=== PATIENT | female | born 1965 | race Caucasian/White ===

== ENCOUNTER 2017-07-20 08:30 | Emergency (ER) | payer OTHER ==
[~2017-07-20] VITALS: Wt 45.4 kg
[~2017-07-20 08:30] MED LIST: ADVAIR 250/501 EA INH; CHANTIX STARTER1 TAB PO; EFFEXOR XR150 M1 PO; NEURONTIN100 MG PO; NEURONTIN300 MG PO; PERCOCET 325 MG1 TA7 PO; PREDNICOT20 MG PO; PRILOSEC20 MG PO; PROAIR HFA8.5 GM INH; ROBAXIN500 MG PO; TOPAMAX50 MG PO; VOLTAREN50 M1 PO; ZOFRAN4 MG PO
[2017-07-20] MEDS ORDERED: VENTOLIN 02.5 MG/3 M INH (08:43)
[2017-07-20 09:18] LABS: BASO % 0.5 % (0.0-1.0); EOS % 0.2 % (1.0-4.0); HEMATOCRIT 42.1 % (37.0-47.0); HEMOGLOBIN 14.2 g/dl (12.0-16.0); LYMPH # 1.3 10*3/uL (1.3-4.4); LYMPH % 14.8 % (27.0-41.0); MEAN CELL VOLUME 89.6 fl (81.0-99.0); MEAN CORPUSCULAR HGB 30.2 pg (27.0-31.0); MEAN CORPUSCULAR HGB CONC 33.7 g/dl (33.0-37.0); MEAN PLATELET VOLUME 10.5 fl (9.6-12.3); MONO # 0.5 10*3/uL (0.1-1.0); MONO % 6.1 % (3.0-9.0); NEUT # 6.7 10*3/uL (2.3-7.9); NEUT % 78.1 % (47.0-73.0); PLATELET COUNT AUTOMATED 201 10*3/uL (130-400); RED CELL DISTRI WIDTH 12.2 % (0-14.5); WHITE BLOOD COUNT 8.6 10*3/uL (4.8-10.8)
[2017-07-20 09:33] LABS: ALBUMIN 3.7 gm/dl (3.1-4.5); ALKALINE PHOSPHATASE 70 U/L (45-117); BUN 8 mg/dl (7-24); CHLORIDE 107 mmol/L (98-107); CREATININE 0.78 mg/dL (0.55-1.02); POTASSIUM 3.7 mmol/L (3.5-5.1); SGOT/AST 11 IU/L (3-35); SGPT/ALT 15 U/L (12-78); SODIUM 143 mmol/L (136-145); TOTAL PROTEIN 7.4 gm/dL (6.4-8.2)
[2017-07-20 09:34] LABS: TROPONIN I < 0.015 ng/ml (<0.045)
[2017-07-20 10:12] LABS: ACT PARTIAL THROMBO TIME 22.6 SECONDS (20.8-31.5)
[2017-07-20] MEDS ORDERED: PREDNISONE50 MG PO (11:07)
[2017-07-20] MEDS ORDERED: ZITHROMAX250 MG PO (11:07)
== END 2017-07-20 11:58 | disposition home or self-care (01) ==
LOC: ED 08:30
PROVIDERS: Emergency Medicine; Family Medicine Adult Medicine
DX: J44.1 Chronic obstructive pulmonary disease with (acute) exacerbation (principal); F17.200 Nicotine dependence, unspecified, uncomplicated; Z90.710 Acquired absence of both cervix and uterus

== ENCOUNTER 2017-07-25 07:00 | Inpatient (IN) | payer OTHER ==
[2017-07-25] VITALS (7 sets, daily range): BP systolic 129–177; BP diastolic 77–91
[~2017-07-25] VITALS: Ht 160 cm; Wt 49.6 kg
--- NOTE | ~2017-07-25 | CON ---
[place], [place] REPORT OF CONSULTATION NAME: CARLO SOTOMAYOR UNIT #: [id number] ROOM: 504 DOCTOR: TYRELL HAWK MD BIRTHDATE: [birth year] DOS: 07/26/2017 REASON FOR CONSULTATION: Assess the patient for current insulation of bleach and other chemicals with ongoing acute respiratory symptoms. HISTORY OF PRESENT ILLNESS: A 52-year-old white female with a history of past, COPD. The patient has been noted with symptoms of coughing with increased shortness of breath occurred as the patient was spraying different chemicals at home including large amount of bleach. She has inhaled significant amount of these fumes at home and then after that she stated she developed symptoms of tightness in the chest with increased coughing, shortness of breath. The patient has been noted ill prior to that as well seen in the Emergency Room, given [id number] for this respiratory symptom. The patient has been hospitalized and currently started on bronchodilators and other medical management. The patient stated that she has been noted improvement in the respiratory symptoms in the last 24 hours with current combination of medications. The cough has been noted intermittently with some sputum expectoration, described to be yellowish-green at times. There were no symptoms of hemoptysis. REVIEW OF SYSTEMS: The remaining systems were reviewed with the patient is as follows: CONSTITUTIONAL: Fatigue, tiredness without fever or chills. EYES: Denies any burning, redness or discharge. EARS, NOSE, THROAT: No sore throat, hoarseness, otalgia, postnasal drainage or epistaxis. CARDIOVASCULAR: Denies anginal pain, edema or pain of the lower extremities. GASTROINTESTINAL: Denies dysphagia, nausea, vomiting, diarrhea, abdominal pain, hematemesis, melena, hematochezia. SKIN: Denies lesions or rashes. MUSCULOSKELETAL: Denies acute joint pain, redness, or tenderness. CENTRAL NERVOUS SYSTEM: Denies dizziness, headache, diplopia or syncopal episodes. Remaining systems were reviewed and they were noted all negative. PAST MEDICAL HISTORY: 1. History of ____. 2. Bursitis, left shoulder. 3. Cervical radiculopathy. 4. Previous chest wall contusion. 5. Degenerative arthritis. 6. Endometriosis. 7. Fibrocystic breast disease. 8. Gastroesophageal reflux. 9. History of diverticulosis. PAST SURGICAL HISTORY: 1. Breast biopsy. 2. Cataract extraction with lens implantation. 3. Hysterectomy with oophorectomy. [place], [place] REPORT OF CONSULTATION NAME: CARLO SOTOMAYOR UNIT #: [id number] ROOM: [facility] DOCTOR: TYRELL HAWK MD BIRTHDATE: [birth year] 4. Colonoscopy. 5. EGD and tonsillectomy. SOCIAL HISTORY: The patient is , lives at home, has 3 children. Smoking noted since teenager, half a pack of cigarettes a maximum smoking was done by the patient. FAMILY HISTORY: The patient's mother is living, history of COPD. Father history was unknown. HOME MEDICATIONS: The patient was not on regular medications reported use by the patient, except use of Ventolin HFA inhaler and nebulized bronchodilators p.r.n. use. DRUG ALLERGIES: ALLERGY TO ASPIRIN WITH GI INTOLERANCE. PHYSICAL EXAMINATION: GENERAL: This is a 52-year-old white female currently noted awake and alert with mild hoarseness. Height of 5 feet 3 inches, weight 109 pounds, BMI 19.3. VITAL SIGNS: Normal temperature, respiratory rate 20, heart rate of 78, blood pressure 146/67. Intake for the patient was 1800 mL, output 2100 mL. Pulse oxygen saturation on room air 95% saturation noted as normal. HEENT: Head was atraumatic. Eyes nonicterus. NECK: Supple. CARDIOVASCULAR: S1, S2 audible. LUNGS: The patient was noted with [id number] decreased breath sounds without any crackles, rhonchi. Occasional wheezing was present in the lungs bilaterally. ABDOMEN: Soft, nontender. LABORATORY DATA: CBC that was done for the patient on 07/25/2017 white cell count 14.3 with normal hemoglobin, hematocrit, platelet count yesterday. Lactic acid yesterday noted normal. PT/PTT yesterday was normal. CMP of the patient that was done 07/25/2017 noted glucose 123, potassium 3.0, remaining electrolytes normal. CBC of this morning: WBC count 13.3. Normal CBC otherwise. BMP for this patient this morning, normal BUN and creatinine. Relatively normal electrolytes. One-view chest x-ray that was done on 07/25/2017 for this patient was noted with hyperinflation without any acute pulmonary infiltration. Chest x-ray in the Emergency Room 07/20/2017 was noted essentially the same. IMPRESSION: 1. The patient who has been currently noted with ongoing acute exacerbation of chronic obstructive pulmonary disease, acute bronchitis with possibility of acute injury, worsening of acute bronchitis noted with possibility of chemical bronchitis with superimposed bacterial infection. 2. Chronic nicotine dependence as well. PLAN OF TREATMENT: The patient will be recommended about possible discharge on oral tapering dose of prednisone and the antibiotics as necessary. She was [place], [place] REPORT OF CONSULTATION NAME: CARLO SOTOMAYOR UNIT #: [id number] ROOM: 504 DOCTOR: DILLAN MOON MD,TYRELL BIRTHDATE: [birth year] advised about tobacco cessation as well as an outpatient followup for the patient was also suggested postdischarge as well for further assessment of her pulmonary status. There were no signs of acute pneumonia for this patient as well. Additional treatment changes need to be made based on progression of illness, the patient remains in the hospital. She was given the information to contact my office to make an appointment for the thorough pulmonary evaluation as an outpatient. TYRELL GRIMALDO MD CM:CONSTR:REPORT OF CONSULTATION [id number] 07/27/17 0619 interface
--- NOTE | ~2017-07-25 | EKG ---
[place], [place] ELECTROCARDIOGRAM REPORT NAME: CARLO SOTOMAYOR UNIT #: [id number] ROOM: [facility] DOCTOR: DILLAN MOON MD,TYRELL BIRTHDATE: [birth year] DOS: 07/25/2017 ELECTROCARDIOGRAM The electrocardiogram is done 07/25/2017 at 7:40 a.m. Normal sinus rhythm was noted. Heart rate 78 beats per minute with short WI interval, otherwise normal EKG. TYRELL GRIMALDO MD CM:EKGRPT:ELECTROCARDIOGRAM REPORT [id number] TYRELL MOON MD
[~2017-07-25 07:00] MED LIST changes: +PREDNISONE50 MG PO; +VENTOLIN 02.5 MG/3 M INH; +ZITHROMAX250 MG PO
[2017-07-25 07:37] LABS: BASO % 0.1 % (0.0-1.0); HEMOGLOBIN 13.5 g/dl (12.0-16.0); LYMPH % 7.1 % (27.0-41.0); MEAN CELL VOLUME 89.3 fl (81.0-99.0); MEAN CORPUSCULAR HGB 30.1 pg (27.0-31.0); MEAN CORPUSCULAR HGB CONC 33.8 g/dl (33.0-37.0); MEAN PLATELET VOLUME 10.2 fl (9.6-12.3); MONO # 0.5 10*3/uL (0.1-1.0); MONO % 3.3 % (3.0-9.0); NEUT # 12.6 10*3/uL (2.3-7.9); NEUT % 88.7 % (47.0-73.0); PLATELET COUNT AUTOMATED 264 10*3/uL (130-400); RED BLOOD COUNT 4.48 10*6/uL (4.10-5.10); RED CELL DISTRI WIDTH 12.2 % (0-14.5); WHITE BLOOD COUNT 14.3 10*3/uL (4.8-10.8)
[2017-07-25 07:46] LABS: ACT PARTIAL THROMBO TIME 21.5 SECONDS (20.8-31.5)
[2017-07-25 07:52] LABS: ALBUMIN 3.5 gm/dl (3.1-4.5); ALKALINE PHOSPHATASE 64 U/L (45-117); BUN 20 mg/dl (7-24); CHLORIDE 108 mmol/L (98-107); CREATININE 0.88 mg/dL (0.55-1.02); LIPASE 163 U/L (73-393); MAGNESIUM 2.1 mg/dL (1.5-2.1); SGOT/AST 14 IU/L (3-35); SGPT/ALT 18 U/L (12-78); SODIUM 143 mmol/L (136-145)
[2017-07-25 07:59] LABS: TROPONIN I < 0.015 ng/ml (<0.045)
--- NOTE | 2017-07-25 08:25 | NUR ---
NSS pulled from [facility] and sent to floor with patient to start after levawuin is finishd.
--- NOTE | 2017-07-25 09:17 | NUR ---
A 52, admitted to 5E, under the services of NIKITA Vasquez DO with a diagnosis of . Chief complaint is SOB. Patient arrived via stretcher from ER. Monitor applied. Initial assessment completed. Vital signs taken and recorded. NIKITA VASQUEZ DO notified of admission to the unit. Orders received. See assessment for past medical history, medications and allergies. Patient and/or family oriented to unit. [address] visitation policy reviewed. Clothing/patient valuable form completed. BRENDA RECINOS
--- NOTE | 2017-07-25 09:30 | NUR ---
PT REFUSES FLU VACCINE. RATIONALE/EDUCATION PROVIDED. PT STILL DECLINES AT THIS TIME.
--- NOTE | 2017-07-25 13:14 | NUR ---
IVF BOLUS X1 LITER COMPLETED. PT C/O NAUSEA. PT MEDICATED WITH ZOFRAN IV PER ORDERS. CALL LIGHT IN REACH. WILL MONITOR
--- NOTE | 2017-07-25 14:40 | NUR ---
DR GRIMALDO NOTIFIED OF CONSULT.
--- NOTE | 2017-07-25 17:31 | NUR ---
Patient resting quietly with no c/o discomfort. Respirations easy and regular. Vital signs stable. No overt distress. MANDY PILLAI R
--- NOTE | 2017-07-25 20:51 | NUR ---
PATIENT MEDICATED WITH PRN TYLENOL FOR C/O HEADACHE. WILL MONITOR
[2017-07-26] VITALS: BP 120/73
--- NOTE | 2017-07-26 01:01 | NUR ---
24 HR chart check completed.
--- NOTE | 2017-07-26 04:25 | NUR ---
PATIENT RESTING IN BED WITH EYES CLOSED. RESPS EASY AND REGULAR. BED IN LOWEST POSITION, CALL BECKY JEWEL ONEAL
[2017-07-26 06:54] LABS: BASO % 0.1 % (0.0-1.0); HEMATOCRIT 37.4 % (37.0-47.0); HEMOGLOBIN 12.6 g/dl (12.0-16.0); LYMPH % 7.4 % (27.0-41.0); MEAN CELL VOLUME 90.1 fl (81.0-99.0); MEAN CORPUSCULAR HGB 30.4 pg (27.0-31.0); MEAN CORPUSCULAR HGB CONC 33.7 g/dl (33.0-37.0); MEAN PLATELET VOLUME 10.9 fl (9.6-12.3); MONO # 0.3 10*3/uL (0.1-1.0); MONO % 2.5 % (3.0-9.0); NEUT # 11.9 10*3/uL (2.3-7.9); NEUT % 89.2 % (47.0-73.0); PLATELET COUNT AUTOMATED 244 10*3/uL (130-400); RED BLOOD COUNT 4.15 10*6/uL (4.10-5.10); RED CELL DISTRI WIDTH 12.4 % (0-14.5); WHITE BLOOD COUNT 13.3 10*3/uL (4.8-10.8)
[2017-07-26 07:31] LABS: ALKALINE PHOSPHATASE 62 U/L (45-117); BUN 12 mg/dl (7-24); CHLORIDE 112 mmol/L (98-107); CHOLESTEROL 146 mg/dL (<200); CREATININE 0.65 mg/dL (0.55-1.02); HDL CHOLESTEROL 66 mg/dl (40-60); LDL CHOLESTEROL 69 mg/dL (9-159); MAGNESIUM 2.2 mg/dL (1.5-2.1); SGOT/AST 23 IU/L (3-35); SGPT/ALT 46 U/L (12-78); SODIUM 143 mmol/L (136-145); TOTAL PROTEIN 6.8 gm/dL (6.4-8.2); TRIGLYCERIDES 55 mg/dl (<150); VLDL CHOLESTEROL 11 mg/dL (6-40)
[2017-07-26 07:35] LABS: THYROID STIM HORMONE (HS) 0.301 uIU/ml (0.358-4.75)
[2017-07-26 08:00] VITALS: BP 146/67
[2017-07-26 08:25] LABS: VITAMIN D, 25-HYDROXY 28.8 ng/mL (30-100)
--- NOTE | 2017-07-26 08:30 | NUR ---
Corrective Therapy Aide in to talk to patient. Patient states lives at HOME with NOONE. There are 4 steps in the home. Physician: DR JENNINGS Pharmacy: [facility] health services: NONE Patient's level of ADLs: INDEPENDENT Patient has working utilities: YES DME: NONE Follow-up physician's appointment after d/c: WILL BE MADE PRIOR TO DC Does patient want to access PORTAL?: Discharge plan HOME. GABY DIEZ
[2017-07-26] MEDS ORDERED: PROAIR HFA8.5 GM INH (09:20)
[2017-07-26] MEDS ORDERED: DOXYCYCLINE100 M3 PO (09:20)
[2017-07-26] MEDS ORDERED: PREDNISONE10 MG PO (09:20)
[2017-07-26] MEDS ORDERED: NICODERM CQ1 EAC1 TD (09:20)
--- NOTE | 2017-07-26 10:45 | NUR ---
Discharge instructions reviewed with patient/family. Patient receptive and verbalizes understanding. Follow-up care arranged. Written instructions given to patient/family. COLE MIRANDA
== END 2017-07-26 10:45 | disposition home or self-care (01) | DRG 871 ==
LOC: ED 07:00 → EDHOLD 08:06 → 5E 08:06
PROVIDERS: Emergency Medicine; Hospitalist; ADMIT Internal Medicine
DX: A41.9 Sepsis, unspecified organism (principal); J18.9 Pneumonia, unspecified organism; J44.1 Chronic obstructive pulmonary disease with (acute) exacerbation; E44.1 Mild protein-calorie malnutrition; J44.0 Chronic obstructive pulmonary disease with (acute) lower respiratory infection; Z68.1 Body mass index [BMI] 19.9 or less, adult; E87.6 Hypokalemia; J20.9 Acute bronchitis, unspecified; N80.9 Endometriosis, unspecified; N60.19 Diffuse cystic mastopathy of unspecified breast; Z96.1 Presence of intraocular lens; F17.200 Nicotine dependence, unspecified, uncomplicated; M50.30 Other cervical disc degeneration, unspecified cervical region; K21.9 Gastro-esophageal reflux disease without esophagitis; R73.9 Hyperglycemia, unspecified; Z90.710 Acquired absence of both cervix and uterus; Z98.49 Cataract extraction status, unspecified eye; Z90.721 Acquired absence of ovaries, unilateral; Z82.49 Family history of ischemic heart disease and other diseases of the circulatory system; Z78.9 Other specified health status; Z83.3 Family history of diabetes mellitus; Z88.6 Allergy status to analgesic agent; Z79.899 Other long term (current) drug therapy

== ENCOUNTER → 2018-04-25 | Outpatient (CLI) | payer OTHER ==
[~2018-04-25] MED LIST changes: +DOXYCYCLINE100 M3 PO; +NICODERM CQ1 EAC1 TD; +PREDNISONE10 MG PO
[2018-04-25 14:31] LABS: BASO # 0.1 10*3/uL (0.0-0.1); BASO % 0.7 % (0.0-1.0); EOS # 0.1 10*3/uL (0.0-0.4); EOS % 0.9 % (1.0-4.0); HEMATOCRIT 44.6 % (37.0-47.0); HEMOGLOBIN 14.3 g/dl (12.0-16.0); LYMPH # 2.3 10*3/uL (1.3-4.4); LYMPH % 33.2 % (27.0-41.0); MEAN CELL VOLUME 93.1 fl (81.0-99.0); MEAN CORPUSCULAR HGB 29.9 pg (27.0-31.0); MEAN CORPUSCULAR HGB CONC 32.1 g/dl (33.0-37.0); MEAN PLATELET VOLUME 11.1 fl (9.6-12.3); MONO # 0.5 10*3/uL (0.1-1.0); MONO % 6.9 % (3.0-9.0); NEUT % 57.9 % (47.0-73.0); PLATELET COUNT AUTOMATED 194 10*3/uL (130-400); RED BLOOD COUNT 4.79 10*6/uL (4.10-5.10); RED CELL DISTRI WIDTH 12.2 % (0-14.5); WHITE BLOOD COUNT 6.8 10*3/uL (4.8-10.8)
[2018-04-25 14:57] LABS: ALKALINE PHOSPHATASE 61 U/L (45-117); BILIRUBIN, DIRECT 0.2 mg/dL (0.0-0.2); BUN 13 mg/dl (7-24); CHLORIDE 112 mmol/L (98-107); CHOLESTEROL 187 mg/dL (<200); CREATININE 0.89 mg/dL (0.55-1.02); HDL CHOLESTEROL 66 mg/dl (40-60); LDL CHOLESTEROL 103 mg/dL (9-159); PHOSPHOROUS 4.3 mg/dL (2.5-4.9); POTASSIUM 3.7 mmol/L (3.5-5.1); SGOT/AST 6 IU/L (3-35); SGPT/ALT 15 U/L (12-78); SODIUM 146 mmol/L (136-145); THYROXINE (T4) TOTAL 7.7 ug/dl (4.8-13.9); TOTAL PROTEIN 7.2 gm/dL (6.4-8.2); TRIGLYCERIDES 92 mg/dl (<150); VLDL CHOLESTEROL 18 mg/dL (6-40)
== END | disposition home or self-care (01) ==
LOC: LAB 13:25 → RAD 13:30
PROVIDERS: Family Medicine
DX: Z13.820 Encounter for screening for osteoporosis (principal); J44.9 Chronic obstructive pulmonary disease, unspecified; M81.0 Age-related osteoporosis without current pathological fracture; R63.4 Abnormal weight loss; R25.2 Cramp and spasm; Z90.710 Acquired absence of both cervix and uterus

== ENCOUNTER 2018-10-01 08:01 | Emergency (ER) | payer OTHER ==
[~2018-10-01] VITALS: Ht 160 cm; Wt 49.9 kg
[2018-10-01] MEDS ORDERED: PREDNISONE20 M1 PO (10:27)
[2018-10-01] MEDS ORDERED: ROBAXIN500 M1 PO (10:27)
== END 2018-10-01 10:24 | disposition home or self-care (01) ==
LOC: ED 08:01
DX: M54.32 Sciatica, left side (principal); G89.29 Other chronic pain; F17.200 Nicotine dependence, unspecified, uncomplicated; Z88.6 Allergy status to analgesic agent; Z79.899 Other long term (current) drug therapy; Z79.2 Long term (current) use of antibiotics; Z90.710 Acquired absence of both cervix and uterus; Z90.49 Acquired absence of other specified parts of digestive tract

== ENCOUNTER → 2018-12-05 | Outpatient (CLI) | payer OTHER ==
[~2018-12-05] MED LIST changes: +PREDNISONE20 M1 PO; +ROBAXIN500 M1 PO
[2018-12-05 13:32] LABS: BASO % 0.6 % (0.0-1.0); EOS % 0.4 % (1.0-4.0); HEMATOCRIT 47.5 % (37.0-47.0); HEMOGLOBIN 15.5 g/dl (12.0-16.0); LYMPH # 1.7 10*3/uL (1.3-4.4); LYMPH % 34.4 % (27.0-41.0); MEAN CELL VOLUME 92.8 fl (81.0-99.0); MEAN CORPUSCULAR HGB 30.3 pg (27.0-31.0); MEAN CORPUSCULAR HGB CONC 32.6 g/dl (33.0-37.0); MEAN PLATELET VOLUME 11.1 fl (9.6-12.3); MONO # 0.6 10*3/uL (0.1-1.0); MONO % 11.3 % (3.0-9.0); NEUT # 2.7 10*3/uL (2.3-7.9); NEUT % 52.9 % (47.0-73.0); PLATELET COUNT AUTOMATED 190 10*3/uL (130-400); RED BLOOD COUNT 5.12 10*6/uL (4.10-5.10); RED CELL DISTRI WIDTH 12.2 % (0-14.5); WHITE BLOOD COUNT 5.1 10*3/uL (4.8-10.8)
[2018-12-05 13:58] LABS: ALKALINE PHOSPHATASE 70 U/L (45-117); BILIRUBIN, DIRECT 0.1 mg/dL (0.0-0.2); BUN 11 mg/dl (7-24); CHLORIDE 109 mmol/L (98-107); CREATININE 0.84 mg/dL (0.55-1.02); POTASSIUM 3.7 mmol/L (3.5-5.1); SGOT/AST 10 IU/L (3-35); SGPT/ALT 15 U/L (12-78); SODIUM 141 mmol/L (136-145); TOTAL PROTEIN 7.8 gm/dL (6.4-8.2)
[2018-12-06 08:11] LABS: RHEUMATOID ARTHRITIS FACTOR 15.2 IU/mL (0.0-13.9)
== END | disposition home or self-care (01) ==
LOC: LAB 13:01
PROVIDERS: Family Medicine
DX: M25.50 Pain in unspecified joint (principal)

== ENCOUNTER → 2019-07-13 | Outpatient (CLI) | payer OTHER | END | disposition home or self-care (01) | LOC: RAD 10:37 | DX: J44.9 Chronic obstructive pulmonary disease, unspecified (principal); R07.81 Pleurodynia ==

== ENCOUNTER → 2019-08-31 | Outpatient (CLI) | payer OTHER ==
[2019-08-31 10:07] LABS: BASO # 0.1 10*3/uL (0.0-0.1); BASO % 0.7 % (0.0-1.0); EOS % 0.2 % (1.0-4.0); HEMATOCRIT 43.2 % (37.0-47.0); HEMOGLOBIN 14.2 g/dl (12.0-16.0); LYMPH # 2.7 10*3/uL (1.3-4.4); MEAN CELL VOLUME 93.3 fl (81.0-99.0); MEAN CORPUSCULAR HGB 30.7 pg (27.0-31.0); MEAN CORPUSCULAR HGB CONC 32.9 g/dl (33.0-37.0); MEAN PLATELET VOLUME 11.3 fl (9.6-12.3); MONO # 0.5 10*3/uL (0.1-1.0); MONO % 5.6 % (3.0-9.0); NEUT # 5.5 10*3/uL (2.3-7.9); NEUT % 62.3 % (47.0-73.0); PLATELET COUNT AUTOMATED 213 10*3/uL (130-400); RED BLOOD COUNT 4.63 10*6/uL (4.10-5.10); RED CELL DISTRI WIDTH 12.1 % (0-14.5); WHITE BLOOD COUNT 8.8 10*3/uL (4.8-10.8)
[2019-08-31 10:31] LABS: ALBUMIN 3.8 gm/dl (3.1-4.5); ALKALINE PHOSPHATASE 51 U/L (45-117); BILIRUBIN, DIRECT 0.1 mg/dL (0.0-0.2); BUN 17 mg/dl (7-24); CHLORIDE 110 mmol/L (98-107); CREATININE 0.86 mg/dL (0.55-1.02); POTASSIUM 3.9 mmol/L (3.5-5.1); SGOT/AST 12 IU/L (3-35); SGPT/ALT 16 U/L (12-78); SODIUM 142 mmol/L (136-145); THYROXINE (T4) TOTAL 7.9 ug/dl (4.8-13.9); TOTAL PROTEIN 6.8 gm/dL (6.4-8.2)
[2019-08-31 10:37] LABS: THYROID STIM HORMONE (HS) 0.828 uIU/ml (0.358-4.75)
[2019-09-01 08:06] LABS: RHEUMATOID ARTHRITIS FACTOR 10.9 IU/mL (0.0-13.9)
== END | disposition home or self-care (01) ==
LOC: LAB 09:25
PROVIDERS: Family Medicine
DX: J04.0 Acute laryngitis (principal); M25.50 Pain in unspecified joint; R79.82 Elevated C-reactive protein (CRP)

== ENCOUNTER → 2019-12-20 | Outpatient (CLI) | payer OTHER | END | disposition home or self-care (01) | LOC: MAMMO 00:52 | DX: Z12.31 Encounter for screening mammogram for malignant neoplasm of breast (principal) ==

== ENCOUNTER 2020-03-28 11:58 | Emergency (ER) | payer OTHER ==
[~2020-03-28] VITALS: Ht 160 cm; Wt 56.7 kg
[2020-03-28 13:09] LABS: ALBUMIN 2.8 gm/dl (3.1-4.5); ALKALINE PHOSPHATASE 49 U/L (45-117); BUN 15 mg/dl (7-24); CHLORIDE 108 mmol/L (98-107); CREATININE 0.71 mg/dL (0.55-1.02); POTASSIUM 3.4 mmol/L (3.5-5.1); SGOT/AST 24 IU/L (3-35); SGPT/ALT 32 U/L (12-78); SODIUM 139 mmol/L (136-145); TOTAL PROTEIN 6.2 gm/dL (6.4-8.2)
[2020-03-28 13:23] LABS: TROPONIN I < 0.015 ng/ml (<0.045)
[2020-03-28 14:04] LABS: HEMATOCRIT 38.2 % (37.0-47.0); MEAN CELL VOLUME 91.4 fl (81.0-99.0); MEAN CORPUSCULAR HGB 30.4 pg (27.0-31.0); MEAN CORPUSCULAR HGB CONC 33.2 g/dl (33.0-37.0); MEAN PLATELET VOLUME 12.9 fl (9.6-12.3); PLATELET COUNT AUTOMATED 71 10*3/uL (130-400); RED BLOOD COUNT 4.18 10*6/uL (4.10-5.10); RED CELL DISTRI WIDTH 12.5 % (0-14.5); WHITE BLOOD COUNT 7.9 10*3/uL (4.8-10.8)
[2020-03-28 14:22] LABS: ATYPICAL LYMPHS 3 % (0-0); TOTAL CELLS COUNTED 100 #CELLS
[2020-03-28 14:23] LABS: PLATELET SUFFICIENCY LOW (NORMAL)
[2020-03-28] MEDS ORDERED: ZYRTEC10 M3 PO (15:01)
[2020-03-28] MEDS ORDERED: MEDROL DOSEPAK4 MG PO (15:01)
== END 2020-03-28 15:15 | disposition home or self-care (01) ==
LOC: ED 11:58
PROVIDERS: Nurse Practitioner Family
DX: H92.02 Otalgia, left ear (principal); F41.9 Anxiety disorder, unspecified; F32.9 Major depressive disorder, single episode, unspecified; J44.9 Chronic obstructive pulmonary disease, unspecified; Z88.5 Allergy status to narcotic agent; Z79.899 Other long term (current) drug therapy

== ENCOUNTER → 2020-07-28 | Outpatient (CLI) | payer OTHER ==
[~2020-07-28] MED LIST changes: +MEDROL DOSEPAK4 MG PO; +ZYRTEC10 M3 PO
[2020-07-28 08:30] LABS: BASO % 0.7 % (0.0-1.0); EOS # 0.1 10*3/uL (0.0-0.4); EOS % 1.2 % (1.0-4.0); HEMATOCRIT 44.6 % (37.0-47.0); LYMPH # 2.4 10*3/uL (1.3-4.4); LYMPH % 41.6 % (27.0-41.0); MEAN CELL VOLUME 90.1 fl (81.0-99.0); MEAN CORPUSCULAR HGB 28.1 pg (27.0-31.0); MEAN CORPUSCULAR HGB CONC 31.2 g/dl (33.0-37.0); MEAN PLATELET VOLUME 10.7 fl (9.6-12.3); MONO # 0.4 10*3/uL (0.1-1.0); MONO % 6.6 % (3.0-9.0); NEUT # 2.9 10*3/uL (2.3-7.9); NEUT % 49.7 % (47.0-73.0); PLATELET COUNT AUTOMATED 219 10*3/uL (130-400); RED BLOOD COUNT 4.95 10*6/uL (4.10-5.10); RED CELL DISTRI WIDTH 12.7 % (0-14.5); WHITE BLOOD COUNT 5.8 10*3/uL (4.8-10.8)
[2020-07-28 08:54] LABS: ALBUMIN 3.9 gm/dl (3.1-4.5); BILIRUBIN, DIRECT < 0.1 mg/dL (0.0-0.2); BUN 21 mg/dl (7-24); CHLORIDE 109 mmol/L (98-107); CREATININE 0.82 mg/dL (0.55-1.02); POTASSIUM 4.1 mmol/L (3.5-5.1); SGOT/AST 9 IU/L (3-35); SGPT/ALT 27 U/L (12-78); SODIUM 140 mmol/L (136-145); THYROXINE (T4) TOTAL 6.8 ug/dl (4.8-13.9); TOTAL PROTEIN 7.3 gm/dL (6.4-8.2)
[2020-07-28 09:02] LABS: ALKALINE PHOSPHATASE 61 U/L (45-117)
== END | disposition home or self-care (01) ==
LOC: LAB 07:59
PROVIDERS: ATTEND Family Medicine
DX: R53.83 Other fatigue (principal); R63.5 Abnormal weight gain

== ENCOUNTER → 2021-12-21 | Outpatient (CLI) | payer OTHER ==
[2021-12-21 15:46] LABS: BASO % 0.5 % (0.0-1.0); EOS % 0.5 % (1.0-4.0); HEMATOCRIT 42.9 % (37.0-47.0); LYMPH # 2.9 10*3/uL (1.3-4.4); LYMPH % 36.8 % (27.0-41.0); MEAN CELL VOLUME 86.5 fl (81.0-99.0); MEAN CORPUSCULAR HGB CONC 34.7 g/dl (33.0-37.0); MEAN PLATELET VOLUME 10.4 fl (9.6-12.3); MONO # 0.6 10*3/uL (0.1-1.0); MONO % 7.4 % (3.0-9.0); NEUT # 4.2 10*3/uL (2.3-7.9); NEUT % 54.5 % (47.0-73.0); PLATELET COUNT AUTOMATED 287 10*3/uL (130-400); RED BLOOD COUNT 4.96 10*6/uL (4.10-5.10); RED CELL DISTRI WIDTH 11.8 % (0-14.5); WHITE BLOOD COUNT 7.7 10*3/uL (4.8-10.8)
[2021-12-21 16:08] LABS: BUN 11 mg/dl (7-24); CHLORIDE 109 mmol/L (98-107); CHOLESTEROL 217 mg/dL (<200); CREATININE 0.68 mg/dL (0.55-1.02); POTASSIUM 3.5 mmol/L (3.5-5.1); SGOT/AST 12 IU/L (3-35); SGPT/ALT 35 U/L (12-78); SODIUM 139 mmol/L (136-145); TRIGLYCERIDES 99 mg/dl (<150)
[2021-12-21 16:16] LABS: ALKALINE PHOSPHATASE 77 U/L (45-117); LDL CHOLESTEROL 120 mg/dL (9-159); TOTAL PROTEIN 7.9 gm/dL (6.4-8.2)
== END | disposition home or self-care (01) ==
LOC: LAB 15:16
PROVIDERS: ATTEND Family Medicine
DX: I10 Essential (primary) hypertension (principal); R53.83 Other fatigue

== ENCOUNTER → 2022-07-14 | Outpatient (CLI) | payer OTHER ==
[2022-07-14 16:31] LABS: BUN 28 mg/dl (7-24); CREATININE 0.93 mg/dL (0.55-1.02)
== END | disposition home or self-care (01) ==
LOC: LAB 16:05
PROVIDERS: ATTEND Specialist
DX: R59.0 Localized enlarged lymph nodes (principal)

== ENCOUNTER → 2022-07-16 | Outpatient (CLI) | payer OTHER | END | disposition home or self-care (01) | LOC: CT 00:55 | PROVIDERS: ATTEND Specialist | DX: R59.0 Localized enlarged lymph nodes (principal); R91.1 Solitary pulmonary nodule ==

== ENCOUNTER → 2022-07-26 | Outpatient (CLI) | payer OTHER | END | disposition home or self-care (01) | LOC: RAD 12:50 | PROVIDERS: ATTEND Specialist | DX: M54.2 Cervicalgia (principal); M85.88 Other specified disorders of bone density and structure, other site ==

== ENCOUNTER → 2022-09-13 | Outpatient (CLI) | payer OTHER | END | disposition home or self-care (01) | LOC: MRI 00:21 | PROVIDERS: ATTEND Specialist | DX: M47.812 Spondylosis without myelopathy or radiculopathy, cervical region (principal); M50.30 Other cervical disc degeneration, unspecified cervical region; M99.71 Connective tissue and disc stenosis of intervertebral foramina of cervical region; M48.02 Spinal stenosis, cervical region ==

== ENCOUNTER 2023-01-18 10:41 | Emergency (ER) | payer OTHER ==
[~2023-01-18] VITALS: Ht 160 cm; Wt 78.0 kg
[2023-01-18 12:27] LABS: HEMATOCRIT 45.4 % (37.0-47.0); MANUAL DIFF REFLEX YES; MEAN CELL VOLUME 89.2 fl (81.0-99.0); MEAN CORPUSCULAR HGB 28.7 pg (27.0-31.0); MEAN CORPUSCULAR HGB CONC 32.2 g/dl (33.0-37.0); MEAN PLATELET VOLUME 10.5 fl (9.6-12.3); PLATELET COUNT AUTOMATED 288 10*3/uL (130-400); RED BLOOD COUNT 5.09 10*6/uL (4.10-5.10); RED CELL DISTRI WIDTH 12.3 % (0-14.5)
[2023-01-18 12:38] LABS: ALKALINE PHOSPHATASE 67 U/L (46-116); BUN 13 mg/dl (9-23); CHLORIDE 103 mmol/L (98-107); POTASSIUM 3.9 mmol/L (3.4-5.1); SGPT/ALT 30 U/L (10-49); TOTAL PROTEIN 7.3 gm/dL (6.0-8.0)
[2023-01-18 12:50] LABS: ATYPICAL LYMPHS 10 % (0-0); BASOPHILS 1 % (0-1); TOTAL CELLS COUNTED 100 #CELLS
[2023-01-18 12:53] LABS: PLATELET SUFFICIENCY NORMAL (NORMAL)
[2023-01-18] MEDS ORDERED: PREDNISONE20 M1 PO (14:35)
[2023-01-18] MEDS ORDERED: VENTOLIN 02.5 MG/3 M INH (14:37)
[2023-01-18] MEDS ORDERED: AEROECLIPSE II1 EACH MC (14:37)
== END 2023-01-18 14:47 | disposition home or self-care (01) ==
LOC: ED 10:41
PROVIDERS: Nurse Practitioner Family
DX: J06.9 Acute upper respiratory infection, unspecified (principal); F41.9 Anxiety disorder, unspecified; F32.A Depression, unspecified; J44.9 Chronic obstructive pulmonary disease, unspecified; Z88.6 Allergy status to analgesic agent; Z90.710 Acquired absence of both cervix and uterus; Z90.89 Acquired absence of other organs; Z98.890 Other specified postprocedural states; Z87.891 Personal history of nicotine dependence

== ENCOUNTER → 2023-02-01 | Outpatient (CLI) | payer OTHER ==
[~2023-02-01] MED LIST changes: +AEROECLIPSE II1 EACH MC
== END | disposition home or self-care (01) ==
LOC: CT 01-21 10:00
PROVIDERS: ATTEND Family Medicine
DX: J43.9 Emphysema, unspecified (principal); R91.8 Other nonspecific abnormal finding of lung field; K76.0 Fatty (change of) liver, not elsewhere classified; K44.9 Diaphragmatic hernia without obstruction or gangrene

== ENCOUNTER → 2023-06-28 | Outpatient (CLI) | payer OTHER ==
[2023-06-28 11:38] LABS: BASO % 0.5 % (0.0-1.0); EOS % 0.7 % (1.0-4.0); HEMATOCRIT 42.4 % (37.0-47.0); LYMPH # 2.1 10*3/uL (1.3-4.4); LYMPH % 37.3 % (27.0-41.0); MEAN CELL VOLUME 89.6 fl (81.0-99.0); MEAN CORPUSCULAR HGB 28.8 pg (27.0-31.0); MEAN CORPUSCULAR HGB CONC 32.1 g/dl (33.0-37.0); MEAN PLATELET VOLUME 10.8 fl (9.6-12.3); MONO # 0.4 10*3/uL (0.1-1.0); MONO % 7.8 % (3.0-9.0); NEUT % 53.2 % (47.0-73.0); PLATELET COUNT AUTOMATED 231 10*3/uL (130-400); RED BLOOD COUNT 4.73 10*6/uL (4.10-5.10); RED CELL DISTRI WIDTH 12.3 % (0-14.5); WHITE BLOOD COUNT 5.7 10*3/uL (4.8-10.8)
[2023-06-28 12:05] LABS: ALKALINE PHOSPHATASE 66 U/L (46-116); BUN 18 mg/dl (9-23); CHLORIDE 109 mmol/L (98-107); POTASSIUM 4.1 mmol/L (3.4-5.1); SGPT/ALT 19 U/L (10-49); THYROXINE (T4) TOTAL 6.6 ug/dl (4.5-10.9); TOTAL PROTEIN 7.1 gm/dL (6.0-8.0)
[2023-06-28 12:40] LABS: VITAMIN D, 25-HYDROXY 24.7 ng/mL (30-100)
== END | disposition home or self-care (01) ==
LOC: LAB 11:19
PROVIDERS: ATTEND Family Medicine
DX: E55.9 Vitamin D deficiency, unspecified (principal); R63.5 Abnormal weight gain; R53.82 Chronic fatigue, unspecified

== ENCOUNTER → 2024-10-02 | Outpatient (CLI) | payer OTHER ==
[2024-10-02 11:45] LABS: BASO % 0.7 % (0.0-1.0); EOS % 0.5 % (1.0-4.0); HEMATOCRIT 43.1 % (37.0-47.0); MEAN CELL VOLUME 91.9 fl (81.0-99.0); MEAN CORPUSCULAR HGB 30.1 pg (27.0-31.0); MEAN CORPUSCULAR HGB CONC 32.7 g/dl (33.0-37.0); MEAN PLATELET VOLUME 11.2 fl (9.6-12.3); MONO # 0.4 10*3/uL (0.1-1.0); MONO % 7.2 % (3.0-9.0); NEUT # 3.1 10*3/uL (2.3-7.9); NEUT % 54.1 % (47.0-73.0); PLATELET COUNT AUTOMATED 216 10*3/uL (130-400); RED BLOOD COUNT 4.69 10*6/uL (4.10-5.10); RED CELL DISTRI WIDTH 12.3 % (0-14.5); WHITE BLOOD COUNT 5.7 10*3/uL (4.8-10.8)
[2024-10-02 12:11] LABS: ALKALINE PHOSPHATASE 70 U/L (46-116); BUN 17 mg/dl (9-23); CHLORIDE 108 mmol/L (98-107); CHOLESTEROL 181 mg/dL (<200); LDL CHOLESTEROL 114 mg/dL (9-159); POTASSIUM 3.8 mmol/L (3.4-5.1); SGPT/ALT 10 U/L (5-49); THYROXINE (T4) TOTAL 6.6 ug/dl (4.5-10.9); TOTAL PROTEIN 6.6 gm/dL (6.0-8.0); TRIGLYCERIDES 68 mg/dl (<150)
[2024-10-02 12:13] LABS: VITAMIN D, 25-HYDROXY 29.2 ng/mL (30-100)
== END | disposition home or self-care (01) ==
LOC: LAB 11:07
PROVIDERS: ATTEND Family Medicine
DX: I10 Essential (primary) hypertension (principal); J44.9 Chronic obstructive pulmonary disease, unspecified; E55.9 Vitamin D deficiency, unspecified

== ENCOUNTER 2024-11-05 11:17 | Emergency (ER) | payer OTHER ==
[~2024-11-05] VITALS: Ht 160 cm; Wt 54.4 kg
[~2024-11-05 11:17] MED LIST changes: +AVALIDE 150-121 EACH PO; +DICLOFENAC SOD100 MG PO; +DICLOFENAC SOD50 MG PO; +LEVOCETIRIZINE D5 M1 PO; +OMEPRAZOLE40 MG PO; +OMNICEF300 MG PO; +Ondansetron4 MG PO; +TRIAMTERENE-HC1 EAC2 PO; +ZITHROMAX500 MG PO
[2024-11-05] MEDS ORDERED: Metoclopramide Hydrochloride 10 MG/2 ML VIAL IV ONE (12:45)
[2024-11-05] MEDS ORDERED: diphenhydrAMINE hydrochloride 50 MG/ML VIAL IV ONE (12:45)
[2024-11-05 13:23] LABS: ALKALINE PHOSPHATASE 54 U/L (46-116); BUN 20 mg/dl (9-23); CHLORIDE 100 mmol/L (98-107); LIPASE 113 U/L (12-53); POTASSIUM 4.1 mmol/L (3.4-5.1); SGPT/ALT 15 U/L (5-49); TOTAL PROTEIN 6.1 gm/dL (6.0-8.0)
[2024-11-05 13:34] LABS: BILIRUBIN 1+ (Negative); BLOOD Negative (Negative); CLARITY Cloudy (Clear); COLOR Dark Yellow (Yellow); GLUCOSE Negative (Negative); KETONE Trace (Negative); LEUKO ESTERASE 1+ (Negative); NITRITE Negative (Negative); PH 7.5 (4.5-8.0); SPECIFIC GRAVITY 1.025 (1.001-1.030)
[2024-11-05 13:45] LABS: HEMATOCRIT 43.8 % (37.0-47.0); MEAN CELL VOLUME 89.4 fl (81.0-99.0); MEAN CORPUSCULAR HGB 29.4 pg (27.0-31.0); MEAN CORPUSCULAR HGB CONC 32.9 g/dl (33.0-37.0); PLATELET COUNT AUTOMATED 372 10*3/uL (130-400); RED CELL DISTRI WIDTH 12.6 % (0-14.5); WHITE BLOOD COUNT 19.4 10*3/uL (4.8-10.8)
[2024-11-05 13:47] LABS: BACTERIA 2+
[2024-11-05 13:48] LABS: MUCOUS 2+
[2024-11-05 13:48] LABS: MANUAL DIFF REFLEX YES
[2024-11-05 14:37] LABS: ATYPICAL LYMPHS 1 % (0-0); OVALOCYTES FEW; PLATELET SUFFICIENCY NORMAL (NORMAL); TOTAL CELLS COUNTED 100 #CELLS
[2024-11-05] MEDS ORDERED: Ceftriaxone Sodium 1 GM/10 ML SYR IV ONE (14:50)
[2024-11-05] MEDS ORDERED: MORPHINE Sulfate 2 MG/ML SYR IV ONE (14:50)
[2024-11-05] MEDS ORDERED: CIPRO500 MG PO (15:42)
== END 2024-11-05 18:20 | disposition home or self-care (01) ==
LOC: ED 11:17
PROVIDERS: Internal Medicine
DX: N39.0 Urinary tract infection, site not specified (principal); J44.9 Chronic obstructive pulmonary disease, unspecified; I10 Essential (primary) hypertension; K21.9 Gastro-esophageal reflux disease without esophagitis; F41.9 Anxiety disorder, unspecified; R19.7 Diarrhea, unspecified; F32.A Depression, unspecified; F17.200 Nicotine dependence, unspecified, uncomplicated; Z88.6 Allergy status to analgesic agent; Z90.710 Acquired absence of both cervix and uterus; Z90.89 Acquired absence of other organs; Z98.890 Other specified postprocedural states

== ENCOUNTER → 2025-10-05 | Outpatient (CLI) | payer OTHER ==
[~2025-10-05] MED LIST changes: +CIPRO500 MG PO
[2025-10-05 09:55] LABS: BASO # 0.1 10*3/uL (0.0-0.1); BASO % 1.1 % (0.0-1.0); EOS # 0.0 10*3/uL (0.0-0.4); EOS % 0.5 % (1.0-4.0); MEAN CELL VOLUME 90.5 fl (81.0-99.0); MEAN CORPUSCULAR HGB 30.6 pg (27.0-31.0); MEAN PLATELET VOLUME 10.4 fl (9.6-12.3); MONO # 0.4 10*3/uL (0.1-1.0); MONO % 7.1 % (3.0-9.0); NEUT # 3.2 10*3/uL (2.3-7.9); NEUT % 52.0 % (47.0-73.0); NUCLEATED RED BLOOD CELL 0.0 % (0.0-0.0); NUCLEATED RED BLOOD CELL 0.0 10*3/uL (0.0-0.0); PLATELET COUNT AUTOMATED 222 10*3/uL (130-400); RED CELL DISTRI WIDTH 12.5 % (0-14.5)
[2025-10-05 10:23] LABS: BUN 16 mg/dl (9-23); LDL CHOLESTEROL 97 mg/dL (9-159); SGPT/ALT 9 U/L (5-49); THYROXINE (T4) TOTAL 6.5 ug/dl (4.5-10.9)
== END | disposition home or self-care (01) ==
LOC: LAB 09:34
PROVIDERS: ATTEND Family Medicine
DX: M47.812 Spondylosis without myelopathy or radiculopathy, cervical region (principal); M25.78 Osteophyte, vertebrae; M50.322 Other cervical disc degeneration at C5-C6 level; M25.532 Pain in left wrist